=== PATIENT | male | born 1955 | race Caucasian/White ===

== ENCOUNTER 2018-05-20 12:38 | Day surgery (SDC) | END 2018-05-20 17:10 | disposition home or self-care (01) ==

== ENCOUNTER → 2019-02-03 | Outpatient (CLI) | payer OTHER ==
[~2019-02-03] MED LIST: CHOLESTEROL MED; IOHEXOL 100 ML ONE; METOPROLOL 100 MG TAB ONE; METOPROLOL 100 MG TAB PO ONE; NITROGLYCERIN AEROSOL (4.9 GM) ONE; SOD CHLORIDE 0.9% 100 ML ONE; VITAMIN D
== END | disposition home or self-care (01) ==
LOC: C/S 09:42
PROVIDERS: ATTEND Nuclear Medicine Nuclear Cardiology
DX: I25.10 Atherosclerotic heart disease of native coronary artery without angina pectoris (principal)
CPT/HCPCS: 75571; 75574; Q9967; Z7610